=== PATIENT | male | born 1995 | race Caucasian/White ===

== ENCOUNTER 2016-09-21 12:40 | Emergency (ER) | payer OTHER ==
[2016-09-21 12:59] VITALS: BP 118/69
--- NOTE | 2016-09-21 13:35 | XRay Report ---
Left knee 3 views: History: Knee pain. Findings: No bony or articular abnormality. No fracture, dislocation or joint effusion. Impression: Essentially negative left knee.
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
== END 2016-09-21 15:56 | disposition home or self-care (01) ==
LOC: ED 12:40
DX: Z00.8 Encounter for other general examination (principal)

== ENCOUNTER 2017-03-31 14:11 | Emergency (ER) | payer OTHER ==
[2017-03-31 16:54] VITALS: BP 119/70
[2017-03-31] MEDS ORDERED: ZOFRAN IV ONE (16:59)
[2017-03-31] MEDS ORDERED: SUBLIMAZE IV ONE (17:00)
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
[2017-03-31 17:51] LABS: Basophils % (Auto) 0.7 % (0.0-1.8); Hematocrit 49.7 % (35.5-45.6); Mean Corpuscular HGB Conc 32 % (32-34); Mean Corpuscular Hemoglobin 27 pg (28-32); Mean Corpuscular Volume 83 fl (84-94); Platelet Count 192 K/mm3 (140-440); Red Blood Count 6.01 M/mm3 (3.65-5.03); White Blood Count 5.8 K/mm3 (4.5-11.0)
[2017-03-31 18:10] LABS: Alanine Aminotransferase 17 units/L (7-56); Alkaline Phosphatase 69 units/L (35-129); Anion Gap 17 mmol/L; BUN/Creatinine Ratio 20; Blood Urea Nitrogen 16 mg/dL (9-20); Calcium 10.5 mg/dL (8.4-10.2); Carbon Dioxide 27 mmol/L (22-30); Chloride 97.5 mmol/L (98-107); Glucose 83 mg/dL (75-100); Potassium 4.2 mmol/L (3.6-5.0); Sodium 137 mmol/L (137-145); Total Protein 7.5 g/dL (6.3-8.2)
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
== END 2017-03-31 20:09 | disposition left against medical advice (07) ==
LOC: ED 14:11
DX: M54.2 Cervicalgia (principal); M54.6 Pain in thoracic spine; V89.2XXA Person injured in unspecified motor-vehicle accident, traffic, initial encounter; Y93.89 Activity, other specified; Y99.8 Other external cause status; Y92.410 Unspecified street and highway as the place of occurrence of the external cause
CPT/HCPCS: 36415; 72072; 73620; 80053; 85025; 99284; J2405; J3010

== ENCOUNTER 2021-10-19 07:36 | Emergency (ER) | payer OTHER ==
[2021-10-19] MEDS ORDERED: KETOROLAC 10 MG TAB PO ONE (09:03)
[2021-10-19] MEDS ORDERED: CYCLOBENZAPRINE 10 MG TAB PO ONE (09:03)
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
[2021-10-19 10:05] VITALS: BP 124/86
== END 2021-10-19 10:31 | disposition home or self-care (01) ==
LOC: ED 07:36
DX: M25.511 Pain in right shoulder (principal); M54.2 Cervicalgia; M54.9 Dorsalgia, unspecified; V49.40XA Driver injured in collision with unspecified motor vehicles in traffic accident, initial encounter; Y93.89 Activity, other specified; Y92.89 Other specified places as the place of occurrence of the external cause; Y99.8 Other external cause status
CPT/HCPCS: 72040; 72072; 99283